=== PATIENT | female | born 1965 | race African-American/Black ===

== ENCOUNTER → 2017-01-22 | Outpatient (CLI) | payer OTHER ==
[~2017-01-22] MED LIST: GADOBUTROL 7.5 MMOL/7.5 ML VIAL IV ONE
--- NOTE | 2017-01-22 15:43 | RAD ---
MRI Brain with and without contrast History: Slurred speech with left-sided heaviness for 3 days Technique: Multiplanar, multi sequential pre and postcontrast MR imaging was performed of the brain. Comparison: None Findings: There is no evidence of recent infarct or cytotoxic edema. The ventricles, sulci, and cisterns are within normal limits in size and configuration. There is no significant midline shift, intraaxial mass effect, or focal abnormal extra-axial fluid collection. Very minimal T2 and FLAIR hyperintense signal near the frontal horns bilaterally can be seen in asymptomatic individuals. Otherwise there is no significant signal abnormality including hemosiderin deposition of the brain parenchyma. There is no nodular parenchymal or leptomeningeal enhancement. There is preservation of the major intracranial flow-voids at the skull base. The cerebellar tonsils are normal in location. There is no significant abnormality of the pineal gland or pituitary gland. Paranasal sinuses are overall aerated. The mastoid air cells are aerated. There is preserved marrow signal of the clivus. Impression: 1. There is no evidence of recent infarct or abnormal intracranial enhancement, no significant intracranial abnormality. Electronically signed by: Keon Jackson MD (01/22/2017 3:40 PM) [id number]
== END | disposition home or self-care (01) ==
LOC: MRI 14:18
PROVIDERS: ATTEND Family Medicine
DX: R47.81 Slurred speech (principal); R53.1 Weakness
CPT/HCPCS: 70553; A9585